=== PATIENT | female | born 1965 | race Caucasian/White ===

== ENCOUNTER 2022-03-03 14:36 | Emergency (ER) | payer BC, SELFPAY ==
[2022-03-03 16:53] VITALS: BP 148/72; PULSE 59; RESP 18; TEMP 36.8; O2SAT 97; BMI 23.8
[2022-03-03 17:26] LABS: Alanine Aminotransferase 22 U/L (0-31); Albumin Level 4.3 g/dL (3.5-5.0); Alkaline Phosphatase 91 U/L (39-117); Anion Gap 15 (12-20); Aspartate Amino Transferase 21 U/L (5-31); Bilirubin Direct < 0.2 mg/dL (0.0-0.5); Bilirubin Total 0.6 mg/dL (0.0-1.0); Blood Urea Nitrogen 12 mg/dL (9-16); Carbon Dioxide 23 mmol/L (22-29); Chloride 105 mmol/L (96-108); Creatinine Clr Calc Pharmacy 72.8; Estimated Glomerular Filt Rate > 60; Glucose Random 113 mg/dL (60-115); Lipase 45 U/L (8-78); Potassium 4.2 mmol/L (3.3-5.1); Sodium 139 mmol/L (135-145); Total Protein 6.9 g/dL (6.5-8.0)
[2022-03-03 17:29] LABS: Hematocrit 41.9 % (37.0-47.0); Hemoglobin 14.9 g/dl (12.0-16.0); Mean Corpuscular HGB Conc 35.6 g/dl (31.0-35.0); Mean Corpuscular Hemoglobin 31.6 pg (27.0-33.0); Mean Corpuscular Volume 88.8 fL (80.0-98.0); Mean Platelet Volume 9.7 fL (9.4-12.3); Platelet Count 198 X10*3/uL (160-400); Red Blood Count 4.72 X10*6/uL (4.20-5.50); Red Cell Distribution Width 11.8 % (11.0-16.0); White Blood Count 6.9 X10*3/uL (4.8-10.8)
--- NOTE | 2022-03-03 21:37 | ED_ITS ---
HPI - Abdominal Pain General Chief Complaint: Abdominal Pain Stated Complaint: stomach pains Time Seen by Provider: 03/03/22 21:37 Source: patient Mode of arrival: ambulatory Limitations: no limitations History of Present Illness HPI narrative: Patient with no significant past abdominal complaints been having 3 days of diffuse abdominal pain with diarrhea multiple times which is watery nonbloody no recent travel no other family member sick no fever no chills no cough patient drinks once a week and had few drinks few days Related Data Previous Rx's Medication Instructions Recorded dicyclomine 20 mg tablet 20 mg PO QID PRN abdominal pain 03/03/22 #20 tabs Allergies Allergy/AdvReac Type Severity Reaction Status Date / Time No Known Allergies Allergy Verified 03/03/22 21:54 Review of Systems Review of Systems Yes all other systems are reviewed and are negative [facility] Social History Social History Advance Directives: Yes Advance Directives Information Provided: No Advance Directives on File: No Physical Exam ED Vital Signs: Vital Signs - 24 hr 03/03/22 16:53 03/03/22 22:23 Temperature 98.2 F 98.7 F Pulse Rate 59 47 L Respiratory Rate 18 16 Blood Pressure 148/72 H 163/80 H Pulse Oximetry 97 98 Oxygen Delivery Method Room Air Room Air BMI result Body Mass Index 23.8 Appearance: Alert. Oriented X3. No acute distress. Eyes: PERRLA, No Nystagmus ENT: Pharynx normal. Oral Mucosa moist Neck: Normal inspection. Neck supple. CVS: Normal heart rate and rhythm. Pulses normal. Respiratory: No respiratory distress. Equal air entry bilateral, no wheezing/rales/rhonchi Abdomen: Soft and no focal tenderness no guarding or rebound tenderness, diffuse discomfort Bowel sounds are present, no mass palpable, no CVA tenderness Skin: Skin warm and dry. Normal skin color. Normal skin turgor. Extremities: No lower extremity edema. Neuro: Oriented X 3. MDM - Abdominal Pain MDM Narrative Medical decision making narrative: 2199 Patient has stable labs diffuse abdominal pain with diarrhea likely gastroenteritis no vomiting will give patient Bentyl Lab Data Attestation: I reviewed the patient's lab results. Result diagrams: 03/03/22 17:02 03/03/22 17:02 Labs: Lab Results 03/03/22 03/03/22 Range/Units 17:02 17:02 WBC 6.9 (4.8-10.8) X10*3/uL RBC 4.72 (4.20-5.50) X10*6/uL Hgb 14.9 (12.0-16.0) g/dl Hct 41.9 (37.0-47.0) % MCV 88.8 (80.0-98.0) fL MCH 31.6 (27.0-33.0) pg MCHC 35.6 H (31.0-35.0) g/dl RDW 11.8 (11.0-16.0) % Plt Count 198 (160-400) X10*3/uL MPV 9.7 (9.4-12.3) fL Absolute Nucleated RBC 0.000 (0.0-0.012) X10*3/uL Nucleated RBC % (auto) 0.0 (0.0-0.2) /100WBC Sodium 139 (135-145) mmol/L Potassium 4.2 (3.3-5.1) mmol/L Chloride 105 (96-108) mmol/L Carbon Dioxide 23 (22-29) mmol/L Anion Gap 15 (12-20) BUN 12 (9-16) mg/dL Creatinine 0.69 (0.5-1.4) mg/dL Estim Creat Clear Calc 72.8 Estimated GFR > 60 Random Glucose 113 (60-115) mg/dL Calcium 9.0 (8.4-10.2) mg/dL Total Bilirubin 0.6 (0.0-1.0) mg/dL Direct Bilirubin < 0.2 (0.0-0.5) mg/dL AST 21 (5-31) U/L ALT 22 (0-31) U/L Alkaline Phosphatase 91 (39-117) U/L Total Protein 6.9 (6.5-8.0) g/dL Albumin 4.3 (3.5-5.0) g/dL Lipase 45 (8-78) U/L Discharge Plan Discharge Clinical Impression: Gastroenteritis Patient Disposition: Home, Self-Care Instructions: Acute Diarrhea (ED) Additional Instructions: Drink plenty of fluids Take medication for abdominal spasm and diarrhea as prescribed Follow-up with your PCP problem continues for further tests Prescriptions: New dicyclomine 20 mg tablet 20 mg PO QID PRN (Reason: abdominal pain) Qty: 20 0RF Interventions: ED Discharge Assessment Last Done: 03/03/22 22:27 Discharge Date/Time: 03/03/22 22:33
[2022-03-03] MEDS: Dicyclomine HCl 10 MG CAPSULE 20 MG PO (22:22)
[2022-03-03 22:23] VITALS: BP 163/80; PULSE 47; RESP 16; TEMP 37.1; O2SAT 98
== END 2022-03-03 22:33 | disposition home or self-care (01) ==
PROVIDERS: Emergency Provider Internal Medicine
DX: K52.9 Noninfective gastroenteritis and colitis, unspecified (principal); Z79.899 Other long term (current) drug therapy
CPT/HCPCS: 36415; 80048; 80076; 83690; 85027; 99283